=== PATIENT | female | born 1945 | race Caucasian/White ===

== ENCOUNTER → 2023-10-15 10:46 | Outpatient (REF) | payer MEDICARE, OTHER, SELFPAY ==
[2023-10-15 11:09] LABS: % Basophils 0.9 % (0-2); % Eosinophils 3.9 % (0-6); % Immature Granulocytes 0.3 % (0-0.5); % Monocytes 9.9 % (1.7-9.3); Absolute Basophils 0.1 10^3/uL (0-0.2); Absolute Eosinophils 0.3 10^3/uL (0-0.7); Absolute Lymphocytes 2.5 10^3/uL (1.2-3.4); Absolute Monocytes 0.7 10^3/uL (0.1-0.6); Absolute Neutrophils 3.4 10^3/uL (1.4-6.5); Hematocrit 41.7 % (37.0-47.0); Hemoglobin 14.1 g/dL (12.0-16.0); Mean Corp Hgb Conc. 33.8 g/dL (33.0-37.0); Mean Corpuscular Hgb 31.8 pg (27.0-31.0); Mean Corpuscular Volume 94.1 fL (81.0-99.0); Mean Platelet Volume 9.3 fL (7.4-10.4); Nucleated Red Blood Cells % 0 %; Platelet Count 235 10^3/uL (130-400); Red Blood Cell Count 4.43 10^6/uL (4.20-5.40); Red Cell Dist. Width 13.6 % (11.5-14.5); White Blood Cell Count 6.9 10^3/uL (4.8-10.8)
[2023-10-15 11:22] LABS: ALT (SGPT) 19 U/L (0-35); AST (SGOT) 25 U/L (14-36); Albumin 4.7 g/dl (3.5-5.0); Alkaline Phosphatase 58 U/L (38-126); Blood Urea Nitrogen 22 mg/dl (7-17); Calcium 10.2 mg/dl (8.4-10.2); Carbon Dioxide 28 mmol/L (22-30); Chloride 103 mmol/L (98-107); Glucose 234 mg/dl (70-99); Magnesium 2.1 mg/dl (1.6-2.3); Potassium 4.3 mmol/L (3.5-5.1); Sodium 137 mmol/L (135-145); Total Bilirubin 0.7 mg/dl (0.2-1.3); Total Protein 7.9 g/dl (6.3-8.2); eGFR > 60.00
== END ==
LOC: SDSPAT 10:46
PROVIDERS: ATTENDING PHYSICIAN Internal Medicine Cardiovascular Disease; FAMILY PHYSICIAN Internal Medicine; OTHER PHYSICIAN Student in an Organized Health Care Education/Training Program
DX: Z01.818 Encounter for other preprocedural examination (principal); I50.22 Chronic systolic (congestive) heart failure; I42.0 Dilated cardiomyopathy
CPT/HCPCS: 36415; 80053; 83735; 85025; 93005

== ENCOUNTER 2023-10-23 18:26 | Inpatient (IN) | payer MEDICARE, OTHER, SELFPAY ==
[2023-10-15 10:57] VITALS: BMI 28.1
[2023-10-23] VITALS (15 sets, daily range): BP systolic 83–118; BP diastolic 49–90
[2023-10-23 13:36] LABS: Glucose - Point of Care 125 mg/dl (70-99)
--- NOTE | 2023-10-23 13:54 | W.ICD.CONTRA ---
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
-
History of [place]?: No
LV Function
Left ventricular function study result?: Ejection Fraction </= 35%
ACEI/ARB/ARNI
Patient already on ACEI/ARB/ARNI: Yes
Beta-Angel
Patient already on Beta Angel: Yes
--- NOTE | 2023-10-23 15:39 | ITS.CL.ICD ---
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
Implantable Cardioverter Defibrillator
Procedure Report:
Primary Physician: Lazaro Rock MD
Primary Electric Accounting Machine Operator: Cuauhtemoc Guillory DO
Procedure Date: 10/23/2023
Procedure:
1: Implantation of SECTION BEAMER-D utilizing LBBAP pacing lead for conduction system pacing
2: Subclavian venography
Indication/Diagnosis:
1. 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
2. CHF - NYHA class II/III symptoms
3. LVEF < 35%
HISTORY: Please see office H&P.
After informed consent was obtained, the patient was brought to the EP laboratory in a postabsorptive, nonsedated state. Peripheral IV access was established. Prophylactic antibiotics were administered prior to incision. Continuous ECG, blood
pressure, and pulse oximetry were initiated. Cardioversion patch electrodes were placed on the patient's chest and back. A grounding patch was applied to the skin. Sedation was administered by anesthesia.
In order to define the extrathoracic portion of the subclavian vein and exclude significant venous obstruction or anomalous anatomy, subclavian venography was performed prior to the procedure. Using the patient's left peripheral IV, contrast was
injected and images were recorded. The left subclavian vein and SVC were found to be widely patent.
The left chest was prepared and draped in a sterile fashion. A 'time out' was called and confirmed. Local anesthesia was injected in the subcutaneous tissue in the infraclavicular area. An incision was made medial to the deltopectoral groove and
parallel to the clavicle. The subcutaneous tissue was dissected the level of the prepectoral fascia. A subcutaneous pocket was created. Under fluoroscopic guidance and with the assistance of the images from the venogram, three separate
venipunctures were made using micropuncture and modified Seldinger technique. These was performed in the extrathoracic portion of the subclavian vein. Guidewires were passed. Peel-away sheaths were placed, and were used to advance the leads into
the circulation.
Using fluoroscopic guidance, the leads were positioned. The RV lead was advanced to the RV outflow tract. Ventricular ectopy was recorded. Images were taken in ZEE and JUANA views to ensure appropriate lead placement. The lead tip was subsequently
positioned in the RV apex. Adequate sensing and pacing parameters were found, and no diaphragmatic stimulation was seen with high-output pacing.
Fluoroscopy was used to determine likely anatomic site for left bundle branch pacing. The ToonTimetronic C315 sheath was used to deliver the Medtronic 3830 Selectsecure pacing lead with the helix exposed just exposed from the sheath tip during continuous
monitoring when pacemapping the septum during gentle clockwise rotation to obtain a paced QRS morphology of a W pattern in lead V1. Once the suspected optimal site was identified, lead deployment was performed with several rapid rotations as paced
QRS morphology was intermittently monitored until a paced QRS complex in lead V1 demonstrated development of an R wave (qR or rSR). Unipolar pacing impedance dropped by approximately 100-200 ohms suggesting it had reached the left ventricular
subendocardial. Stable VEgm injury current is present throughout lead position and at end of case. Final unipolar pacing impedance is 1000 Ohms. The patient had pre-existing IVCD/LBBB morphology at baseline (>180 ms). Final conduction system paced
QRS complex duration is 140 ms. LVAT is 85 ms and peak V5 -> peak V1 timing is 78 ms.
Next, the right atrial lead was positioned in the right atrial appendage. Adequate sensing and pacing parameters were found, and no diaphragmatic stimulation was seen with high-output pacing. All sheaths were split, and the leads were secured to
the fascia with Ethibond ties.
The pocket was flushed with antibiotic solution and hemostasis was assured. The generator was connected to the leads and placed inside the pocket. Antibiotic envelope was used. The wound was closed with 3 running layers of absorbable suture, and
steri-strips were applied. Defibrillator function testing was deferred.
Fluoroscopy was used to guide lead placement.
Following the procedure, the patient was taken to the recovery area in stable condition. A chest x-ray to be obtained post-procedure.
IMPLANTS:
Device: [employer] Model [id number], SN: [id number]
RA: Medtronic, Model 5076, SN: [id number]
RV ICD: Medtronic, Model 6935M, SN: [id number]
RV LBBAP: Medtronic 3830, SN:[id number], Interventricular septum at LBB
DEVICE TESTING:
RA: Sensing 2.6 mV, Capture 0.5 V @0.4 msec, Impedance 580 ohms
RV (ICD lead): Sensing 8.5 mV, Capture 0.6 V @0.4 msec, Impedance 600 ohms
RV (LBBAP lead): Sensing 12 mV, Capture 1.0 V @0.4 msec, Impedance 1030 ohms
FINAL PROGRAMMING
Donnell Parameters: DDD with 50 to 130 ppm; mode switch on
Tachy Parameters: Monitor (150-180 bpm), FVT (180-220 bpm, iATP with shocks), VF (>220 bpm, ATP while charging, shocks)
COMPLICATIONS:
There were no complications.
CONCLUSIONS:
1: Successful implantation of SECTION BEAMER-D utilizing LBBAP pacing lead for conduction system pacing
RECOMMENDATIONS:
1. Post-op care (tele, CXR, IV abx)
2. In-Office wound check in 5-7 days
3. Routine follow-up with Dr. Guillory/Dr. Agrawal at [facility]
Copy to: Lazaro Rock MD; Cuauhtemoc Guillory, DO
[2023-10-23 18:28] LABS: Glucose - Point of Care 91 mg/dl (70-99)
--- NOTE | 2023-10-23 20:12 | PTCARENOTE ---
Pt received post ICD placement in left anterior chest, immobilizer in place. Telemetry shows vent. paced rhythm. Left chest dressing appears dry and intact, pressure dressing over aquacell. Pt c/o mild wound discomfort.
[2023-10-23] MEDS: PRANDIN 1 MG PO (21:11)
[2023-10-23] MEDS: REMERON 15 MG PO (21:12)
[2023-10-23] MEDS: ENTRESTO 24 MG/26 MG 1 TAB PO (21:12)
[2023-10-23] MEDS: ANCEF 5 IV (21:12)
[2023-10-23] MEDS: TYLENOL 650 MG PO (21:12)
--- NOTE | 2023-10-23 23:56 | PTCARENOTE ---
Pt with complaints of 7/10 L chest wall pain- where ICD is placed- PRN Tylenol provided. L chest dressing CDI- plan of care discussed- pt verbalized understanding. TWO WAY RADIO INSTALLER on the monitor. call vaughan within reach. CXR obtained.
[2023-10-24 03:24] VITALS: BP 115/64
[2023-10-24] MEDS: TYLENOL 650 MG PO ×3 (03:34→12:01)
[2023-10-24 04:18] LABS: Hematocrit 38.3 % (37.0-47.0); Hemoglobin 12.7 g/dL (12.0-16.0); Mean Corp Hgb Conc. 33.2 g/dL (33.0-37.0); Mean Corpuscular Hgb 32.2 pg (27.0-31.0); Mean Platelet Volume 9.8 fL (7.4-10.4); Platelet Count 203 10^3/uL (130-400); Red Blood Cell Count 3.95 10^6/uL (4.20-5.40); Red Cell Dist. Width 13.5 % (11.5-14.5); White Blood Cell Count 8.4 10^3/uL (4.8-10.8)
[2023-10-24 04:41] LABS: Blood Urea Nitrogen 18 mg/dl (7-17); Calcium 9.2 mg/dl (8.4-10.2); Carbon Dioxide 22 mmol/L (22-30); Chloride 109 mmol/L (98-107); Estimated Creatinine Clearance 59 ml/min; Glucose 108 mg/dl (70-99); Magnesium 2.5 mg/dl (1.6-2.3); Potassium 4.1 mmol/L (3.5-5.1); Sodium 138 mmol/L (135-145); eGFR > 60.00
[2023-10-24 06:00] VITALS: BMI 28.4
[2023-10-24] MEDS: ANCEF 5 IV (06:06)
[2023-10-24 07:01] VITALS: BP 120/69
[2023-10-24 07:08] LABS: Glucose - Point of Care 102 mg/dl (70-99)
[2023-10-24 07:21] VITALS: BMI 28.1
--- NOTE | 2023-10-24 07:58 | W.PN.CARDCBS ---
Addendum entered and electronically signed by Boo Hernandez MD 10/24/23 10:13:
Patient seen and examined
Agree with TENNIS COACH note assessment
Agree with TENNIS COACH plan
Examination:
Telemetry reviewed a sensed V paced
Chest x-ray reviewed she has right atrial right ventricular and left bundle branch area leads in standard positions
Site clean dry and intact
Cor regular
Remainder of exam per TENNIS COACH note
Impression:
Chronic HFrEF 20-25%
post BiV ICD LBBAP pacing Medtronic 10/23/23
LBBB
DM
Rheumatoid arthritis
ADHD
ASD
Mild cognitive defecit
Plan:
post device, site stable
carelink with appropriate pacing
CXR no PTX
tele AsVpaced
HF continue GDMT - Entresto, Lasix, Jardiance, Toprol
Activity restrictions reviewed
inc check 1 week
lives alone and only BR upstairs, will have PT assess prior to d/c home
Original Note:
Today's Communication / Plan
-
OOB, PT eval for d/c home this afternoon
Impression / Plan
-
PCP: Lazaro Rock MD
CDY: Cuauhtemoc Guillory,
Impression:
Chronic HFrEF 20-25%
post BiV ICD LBBAP pacing Medtronic 10/23/23
LBBB
DM
Rheumatoid arthritis
ADHD
ASD
Mild cognitive defecit
Plan:
post device, site stable
carelink with appropriate pacing
CXR no PTX
tele AsVpaced
HF continue GDMT - Entresto, Lasix, Jardiance, Toprol
Activity restrictions reviewed
inc check 1 week
lives alone and only BR upstairs, will have PT assess prior to d/c home
CONCLUSIONS:
1: Successful implantation of COMPACTOR DRIVER-D utilizing LBBAP pacing lead for conduction system pacing
FINAL PROGRAMMING
Donnell Parameters: DDD with 50 to 130 ppm; mode switch on
Tachy Parameters: Monitor (150-180 bpm), FVT (180-220 bpm, iATP with shocks), VF (>220 bpm, ATP while charging, shocks)
Progress Note - Surface Hydrologist
Subjective
Date of Service: October 24, 2023
no cp, sob, mild inc pain, nervous to go home
Objective
Labs:
10/24/23 03:37
10/24/23 03:37
Labs
Hgb 12.7 g/dL (12.0-16.0) 10/24/23 03:37
Hct 38.3 % (37.0-47.0) 10/24/23 03:37
Plt Count 203 10^3/uL (130-400) 10/24/23 03:37
Sodium 138 mmol/L (135-145) 10/24/23 03:37
Potassium 4.1 mmol/L (3.5-5.1) 10/24/23 03:37
BUN 18 mg/dl (7-17) H 10/24/23 03:37
Creatinine 0.8 mg/dL (0.6-1.0) 10/24/23 03:37
Glucose 108 mg/dl (70-99) H 10/24/23 03:37
Vital Signs and I&O:
Vital Signs
Temp Pulse Resp BP Pulse Ox
98.4 F 77 20 115/64 95
10/24/23 03:25 10/24/23 03:24 10/24/23 03:25 10/24/23 03:24 10/24/23 03:25
Vital Signs
Temp Pulse Resp BP Pulse Ox
98.4 F 77 20 115/64 95
10/24/23 03:25 10/24/23 03:24 10/24/23 03:25 10/24/23 03:24 10/24/23 03:25
Intake & Output
10/22/23 10/23/23 10/24/23 10/25/23
06:59 06:59 06:59 06:59
Intake Total 520 / 520
Balance 520 / 520
Physical Exam
Physical Exam
NAD< AOX3
S1, S2, RRR
CTAB, non labored, no wheeze
SNTND bsx4
L CW Aquacel dressing c/d/i no HT, pressure dressing removed
[2023-10-24] MEDS: ENTRESTO 24 MG/26 MG 1 TAB PO (08:22)
[2023-10-24] MEDS: LASIX 20 MG PO (08:23)
[2023-10-24] MEDS: TOPROL XL 25 MG PO (08:23)
[2023-10-24] MEDS: JARDIANCE 10 MG PO (08:23)
--- NOTE | 2023-10-24 10:52 | CM ---
Chart reviewed. Patient is independent of ADLS, lives alone in a [address] [facility], [address] [facility], does not use any DME but has a SPC at home. Patient has been ambulating in the room, but is nervous to do stairs. PT evaluation placed. CM to follow
[2023-10-24 12:10] VITALS: BP 118/69
[2023-10-24 12:15] LABS: Glucose - Point of Care 110 mg/dl (70-99)
[2023-10-24 15:05] VITALS: BP 111/59
[2023-10-24 15:15] VITALS: BP 111/59
[2023-10-24] MEDS: ULTRAM 50 MG PO (15:51)
--- NOTE | 2023-10-24 16:32 | W.DS.TRANS ---
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
-
Discharge Instructions:
Sleep Apnea Risk Intermediate
Discharge Diagnosis/Procedures Biv ICD implant
Diet Low Cholesterol,2 Gram Sodium,Restrict fluids to
48 oz
Driving Restrictions No driving for 1 week
Bathing Restrictions OK to Shower
Specialty Instructions Weigh Daily
Instructions:
Stand-Alone Forms: DC Inst - Implanted Device
Changes to Home Medications: No
Discharge Medications:
DC Medications w/original date entered in [facility]
empagliflozin 10 mg tablet (Jardiance) 10 mg PO DAILY 10/10/23
furosemide 20 mg tablet 20 mg PO DAILY 10/10/23
metoprolol succinate 25 mg tablet,extended release 24 hr 25 mg PO DAILY 10/10/23
mirtazapine 15 mg tablet 15 mg PO HS 10/10/23
repaglinide 1 mg tablet 1 mg PO QPM 10/10/23
sacubitril 24 mg-valsartan 26 mg tablet (Entresto) 1 tab PO BID 10/10/23
trazodone 50 mg tablet 50 mg PO HS PRN sleep 10/10/23
infliximab 100 mg intravenous solution (Remicade) 100 mg IV .Q4-6 WEEKS 10/23/23
Home Medication Changes
Pending Results: No
--- NOTE | 2023-10-24 17:23 | PTCARENOTE ---
Pt seen by , Marley Sanchez, [place] and PT. Pt walked up and down stairs without problem. Pt c/o headache and left chest incisional discomfort which did not improve after tylenol. Marley Sanchez NP notified, pt given tramadol. Telemetry and IV device
removed. Discharge instructions reviewed with pt regarding activity and driving restrictions, wound care, pain management, medications and their possible side effects, CHF guidelines, reporting cares and concerns and follow up appt's. Good
understanding verbalized. Pt escorted out via wheelchair with all her belongings and home medtronic device and discharged to home.
== END 2023-10-24 17:20 | disposition home or self-care (01) | DRG 277 ==
LOC: IVU 18:26
PROVIDERS: Nurse Practitioner Adult Health; ADMITTING PHYSICIAN Internal Medicine Cardiovascular Disease; FAMILY PHYSICIAN Internal Medicine
PROC: 02HK3KZ Insertion of Defibrillator Lead into Right Ventricle, Percutaneous Approach (ICD-10-PCS; 2023-10-23)
PROC: 0JH609Z Insertion of Cardiac Resynchronization Defibrillator Pulse Generator into Chest Subcutaneous Tissue and Fascia, Open Approach (ICD-10-PCS; 2023-10-23)
PROC: 02H63KZ Insertion of Defibrillator Lead into Right Atrium, Percutaneous Approach (ICD-10-PCS; 2023-10-23)
PROC: 02H43KZ Insertion of Defibrillator Lead into Coronary Vein, Percutaneous Approach (ICD-10-PCS; 2023-10-23)
DX: I50.22 Chronic systolic (congestive) heart failure (principal); I42.0 Dilated cardiomyopathy; Q21.10 Atrial septal defect, unspecified; I44.7 Left bundle-branch block, unspecified; I25.10 Atherosclerotic heart disease of native coronary artery without angina pectoris; E11.9 Type 2 diabetes mellitus without complications; G31.84 Mild cognitive impairment of uncertain or unknown etiology; G47.00 Insomnia, unspecified; M06.9 Rheumatoid arthritis, unspecified; F90.9 Attention-deficit hyperactivity disorder, unspecified type; Z79.84 Long term (current) use of oral hypoglycemic drugs; Z79.899 Other long term (current) drug therapy
CPT/HCPCS: 33225; 33249; 71045; 80048; 82962; 83735; 85027; 93005; 97162; C1769; C1777; C1882; C1887; C1892; C1898; Q9967